=== PATIENT | female | born 1955 | race Caucasian/White ===

== ENCOUNTER 2016-08-31 12:38 | Emergency (ER) | payer MEDICARE ==
[~2016-08-31 12:38] MED LIST: BUSPAR 5MG TABLE5 MG PO; COGENTIN 2MG TAB2 MG PO; COUMADIN 5MG TAB5 MG PO; FOLIC ACID 1 MG1 MG PO; LEVAQUIN500 MG PO; MEDROL DOSEPAK 24 MG PO; PROAIR HFA8.5 GM INH; RISPERIDONE2 MG PO; ROBITUSSIN DM473 ML PO
[2016-08-31 15:15] LABS: HEMOGLOBIN 12.8 gm/dl (12.3-15.3); RED BLOOD COUNT 4.12 M/UL (4.00-5.10); WHITE BLOOD COUNT 7.6 K/UL (4.5-11.0)
[2016-08-31 15:30] LABS: BUN/CREATININE RATIO 15 (0-10)
== END 2016-08-31 19:40 | disposition short-term general hospital (02) ==
LOC: ER1 12:38
PROVIDERS: Emergency Medicine
DX: D41.4 Neoplasm of uncertain behavior of bladder (principal); R31.0 Gross hematuria; N19 Unspecified kidney failure; I34.0 Nonrheumatic mitral (valve) insufficiency; F41.9 Anxiety disorder, unspecified; Z86.711 Personal history of pulmonary embolism; Z79.01 Long term (current) use of anticoagulants; Z79.899 Other long term (current) drug therapy
CPT/HCPCS: 51702; 76856; 80053; 81001; 84484; 85025; 85610; 86850; 86900; 86901; 87086; 93005; 96360; 99285; J7040